=== PATIENT | female | born 1940 | race African-American/Black ===

== ENCOUNTER → 2017-03-12 | Outpatient (CLI) | payer MEDICARE, OTHER ==
[~2017-03-12] MED LIST: HYDR25TA PO; LOSA50TA37 PO
[2017-03-12 13:08] LABS: CALCIUM, TOTAL 8.2 mg/dL (8.8-10.5); CHOL/HDL RATIO 2.7 (3.9-5.7); CREATININE 4.24 mg/dL (0.60-1.30); POTASSIUM 5.1 mmol/L (3.5-5.1); THYROID STIMULATING HORMONE 1.71 uIU/mL (0.36-3.74)
[2017-03-13 08:53] LABS: ALBUMIN/GLOBULIN RAITO (PEP) 0.9 (0.7-1.7); ALPHA-1 GLOBULINS(PEP) 0.2 g/dL (0.0-0.4); ALPHA-2 GLOBULINS (PEP) 0.7 g/dL (0.4-1.0); BETA (PEP) 0.8 g/dL (0.7-1.3); GAMMA GLOBULINS (PEP) 1.4 g/dL (0.4-1.8); GLOBULIN TOTAL (PEP) 3.2 g/dL (2.2-3.9); IGG (IMMUNOFIXATION) 1534 mg/dL (700-1600); M-SPIKE (PEP) Not Observed g/dL (Not Observed); TOTAL PROTEIN 6.2 g/dL (6.0-8.5)
[2017-03-14 13:15] LABS: COMPLEMENT C3 85 mg/dL (82-167); COMPLEMENT C4 25 mg/dL (14-44)
== END | disposition home or self-care (01) ==
LOC: LABPV 11:57
PROVIDERS: ATTEND Internal Medicine Nephrology
DX: I12.9 Hypertensive chronic kidney disease with stage 1 through stage 4 chronic kidney disease, or unspecified chronic kidney disease (principal); N18.4 Chronic kidney disease, stage 4 (severe); E78.5 Hyperlipidemia, unspecified; R60.0 Localized edema
CPT/HCPCS: 82784; 84155; 84165; 84443; 86160; 86334

== ENCOUNTER → 2018-01-22 | Outpatient (CLI) | payer MEDICARE, OTHER ==
[2018-01-22 17:10] LABS: CALCIUM, TOTAL 7.1 mg/dL (8.8-10.5); CREATININE 5.08 mg/dL (0.60-1.30); POTASSIUM 4.6 mmol/L (3.5-5.1)
[2018-01-22 18:12] LABS: HEMOGLOBIN 6.8 g/dL (12.0-16.0)
== END | disposition home or self-care (01) ==
LOC: LABMN 16:27
PROVIDERS: ATTEND Internal Medicine Nephrology
DX: N18.4 Chronic kidney disease, stage 4 (severe) (principal); E78.5 Hyperlipidemia, unspecified; D64.9 Anemia, unspecified; R60.0 Localized edema
CPT/HCPCS: 85014; 85018